=== PATIENT | female | born 1965 | race Caucasian/White ===

== ENCOUNTER 2022-01-26 16:14 | Emergency (ER) | payer BC ==
[~2022-01-26] VITALS: Ht 160 cm; Wt 84.4 kg
[2022-01-26 16:40] VITALS: BP 119/75
[2022-01-26] MEDS ORDERED: LIDOCAINE MPF 1% 10 MG/ML VIAL INJ ONE (17:00)
--- NOTE | 2022-01-26 17:38 | NUR ---
HUYEN WRAP APPLIED PER ER MID LEVEL
--- NOTE | 2022-01-26 19:08 | NUR ---
Patient discharged with v/s stable. Written and verbal after care instructions given FOR [facility] and explained. Patient verbalized understanding. Ambulatory with steady gait. All questions addressed prior to discharge. Advised to follow up with PMD.
== END 2022-01-26 19:09 | disposition home or self-care (01) ==
LOC: MED 16:14
DX: S61.412A Laceration without foreign body of left hand, initial encounter (principal); Z90.49 Acquired absence of other specified parts of digestive tract; Z98.890 Other specified postprocedural states; W22.8XXA Striking against or struck by other objects, initial encounter; Y93.89 Activity, other specified; Y92.89 Other specified places as the place of occurrence of the external cause; Y99.8 Other external cause status
CPT/HCPCS: 12002; 90471; 90715; 99283; J2001